=== PATIENT | female | born 1985 | race African-American/Black ===

== ENCOUNTER 2020-03-20 14:19 | Observation (INO) | payer SELFPAY ==
[2020-03-20] MEDS ORDERED: IV RINGERS,LACTATED 1000ML 1,000 ML IV SCH (15:12)
[2020-03-20 16:39] LABS: BILIRUBIN,URINE NEGATIVE (NEG); CLARITY,URINE CLEAR; COLOR,URINE YELLOW; NITRITE,URINE NEGATIVE (NEG); PH,URINE 6.5 (<5.0-8.0); PROTEIN,URINE NEGATIVE (NEG-TRACE)
[2020-03-20 16:47] LABS: BARBITURATES NEG (NEG); BENZODIAZEPINES NEG (NEG); CANNABINOIDS POS (NEG); COCAINE NEG (NEG); METHADONE NEG (NEG); OPIATES NEG (NEG); PHENCYCLIDINE NEG (NEG)
[2020-03-20 16:51] LABS: AMPHETAMINE/METHAMPHETAMINE NEG (NEG)
[2020-03-20 16:58] LABS: SQUAMOUS EPITHELIAL CELL,UR MOD /LPF
[2020-03-20 16:59] LABS: BACTERIA,URINE FEW /HPF (0-FEW); RBC,URINE 0 /HPF (0-2)
== END 2020-03-20 18:00 | disposition home or self-care (01) ==
LOC: 3 SO LND 14:19
PROVIDERS: ADMIT Obstetrics & Gynecology; ATTEND Obstetrics & Gynecology
DX: O26.853 Spotting complicating pregnancy, third trimester (principal); O36.8130 Decreased fetal movements, third trimester, not applicable or unspecified; Z3A.28 28 weeks gestation of pregnancy
CPT/HCPCS: 80307; 81001; G0378; G0379